=== PATIENT | male | born 1950 | race Caucasian/White ===

== ENCOUNTER 2017-11-14 12:35 | Inpatient (IN) | payer MEDICARE, BC, OTHER ==
[~2017-11-14] VITALS: Ht 175.3 cm; Wt 89.8 kg
[2017-11-14] MEDS ORDERED: MIRALAX 17 GM POWD.PACK PO PRN (13:15)
[2017-11-14] MEDS ORDERED: MAGNESIUM HYDROXIDE 30 ML LIQUID UDC PO PRN (13:15)
[2017-11-14] MEDS ORDERED: ONDANSETRON 4 MG/2 ML VIAL IM PRN (13:15)
[2017-11-14] MEDS ORDERED: ONDANSETRON ODT 4 MG TAB.RAPDIS SL PRN (13:15)
[2017-11-14] MEDS ORDERED: LORAZEPAM 2 MG/1 ML VIAL IM PRN (13:15)
[2017-11-14] MEDS ORDERED: LOPERAMIDE HCL 2 MG CAPSULE PO PRN ×2 (13:15)
[2017-11-14] MEDS ORDERED: THIAMINE HCL 200 MG/2 ML VIAL IM ONE (13:15)
[2017-11-14] MEDS ORDERED: LORAZEPAM 1 MG TABLET PO PRN ×2 (13:15)
[2017-11-14] MEDS ORDERED: MAG HYDROX/AL HYDROX/SIMETH 30 ML LIQUID UDC PO PRN (13:15)
[2017-11-14] MEDS ORDERED: IBUPROFEN 400 MG TABLET PO PRN (13:15)
[2017-11-14] MEDS ORDERED: diphenhydrAMINE 50 MG CAPSULE PO PRN (13:15)
[2017-11-14] MEDS ORDERED: OLME20TA13 PO (13:18)
[2017-11-14] MEDS ORDERED: DEXL60CA3 PO (13:18)
[2017-11-14 13:25] VITALS: BP 178/122
--- NOTE | 2017-11-14 13:25 | NUR ---
Pre-Admission Pre-admission assessment performed in the intake department of [facility]. Pt is A&O and ambulatory. He does not appear intoxicated and answers questions appropriately. Pt's B/P is 178/122, HR 103, RR 18, O2 sat 97%, pain 0/10. He denies chest pain, dizziness, or SOB. He reports a h/o HTN and takes an anti-hypertensive. Pt reports he is here to be treated for ETOH withdrawal. Last drink being 11/13/17 at 1800. He appears anxious with moist skin and tremors. He denies seizure history. Ad[facility] to [facility].
[2017-11-14 13:47] LABS: *AMPHETAMINE, URINE NEGATIVE (NEGATIVE); *BARBITURATE, URINE NEGATIVE (NEGATIVE); *CANNABINOID, URINE NEGATIVE (NEGATIVE); *COCCAINE, URINE NEGATIVE (NEGATIVE); *OPIATE, URINE NEGATIVE (NEGATIVE); *PHENCYCLIDINE SCREEN,URINE NEGATIVE (NEGATIVE)
[2017-11-14] MEDS: LORAZEPAM 1 MG TABLET PO SCH ×3 (13:54→21:05)
[2017-11-14] MEDS: hydrALAZINE HCL 25 MG TABLET PO PRN ×2 (13:55→21:05)
--- NOTE | 2017-11-14 13:56 | NUR ---
PRN Hydralazine Pt's B/P on admission is 178/122 and HR 103. Pt denies chest pain, dizziness, or SOB. CIWA score 14. Dr. Hogan aware. PRN Hydralazine administered along with ordered Ativan.
[2017-11-14 15:00] VITALS: BP 140/86
--- NOTE | 2017-11-14 15:00 | NUR ---
PRN Hydralazine reassessment PRN Hydralazine effective. Pt's B/P 140/86 and HR 89.
[2017-11-14 15:34] LABS: EOSINOPHILS % (AUTO) 0.8 % (0.0-7.0); HEMOGLOBIN 14.2 g/dL (12.5-16.3); LYMPHOCYTES # (AUTO) 0.4 K/uL (20.0-40.0); LYMPHOCYTES % (AUTO) 8.8 % (20.5-51.5); MEAN CORPUSCULAR HEMOGLOBIN 32.8 uug (23.8-33.4); MEAN CORPUSCULAR HGB CONC 34 g/dL (32.5-36.3); MEAN CORPUSCULAR VOLUME 97.1 fL (73.0-96.2); MONOCYTES # (AUTO) 0.6 K/uL (2.0-10.0); MONOCYTES % (AUTO) 14.6 % (0.0-11.0); NEUTROPHILS # (AUTO) 3.3 K/uL (1.8-8.9); NEUTROPHILS % (AUTO) 74.8 % (38.5-71.5); PLATELET COUNT (AUTO) 116 K/uL (152-348); RED BLOOD CELL COUNT(AUTO) 4.33 MIL/uL (4.06-5.63); WHITE BLOOD COUNT (AUTO) 4.4 K/uL (3.6-10.2)
[2017-11-14 15:48] LABS: THYROID STIMULATING HORMONE 1.184 mIU/mL (0.358-3.740)
[2017-11-14 16:05] LABS: ALANINE AMINOTRANSFERASE 220 U/L (16-63); ALKALINE PHOSPHATASE 97 U/L (50-136); AMYLASE 65 U/L (25-115); ASPARTATE AMINOTRANSFERASE 117 U/L (15-37); BILIRUBIN,TOTAL 0.5 mg/dL (0.2-1.0); CARBON DIOXIDE 29 mmol/L (21-32); CHLORIDE 102 mmol/L (98-107); CREATININE 1.5 mg/dL (0.6-1.3); GLUCOSE 133 mg/dL (74-106); MAGNESIUM 1.6 mg/dL (1.8-2.4); POTASSIUM 4.3 mmol/L (3.5-5.1); TOTAL PROTEIN, SERUM 7.4 g/dL (6.4-8.2); UREA NITROGEN, BLOOD 18 mg/dL (7-18); URIC ACID 5.5 mg/dL (3.5-7.2)
[2017-11-14 16:07] LABS: ETHANOL < 3 MG/DL (0-0)
[2017-11-14] MEDS ORDERED: MAGNESIUM OXIDE 400 MG TABLET PO ONE (16:30)
[2017-11-14 17:15] VITALS: BP 154/109
--- NOTE | 2017-11-14 17:17 | NUR ---
ADMISSION Pt is a 66 yo male who arrived on the [facility] on 11/14/17 at 1341 for medically supervised detox. He is A&O and ambulatory. He reports NKA, requests to be full code status, and on a regular diet. He has PMH of HTN, GERD, and Gout. Pt denies any h/o seizures. On admission vitals are: B/P 178/122, HR 103, RR 18, O2 sat 97%, T 98.7, pain 0/10. Pt is 5'9" and weighs 198lb. PERRLA, lung sounds clear, bowel sounds present, brisk capillary refill, skin is moist and intact. He appears anxious, diaphoretic, with moderate tremors. Last BM was this morning and he is voiding freely. History of Use 1) ETOH/Vodka 9-12 oz per day for the past 2 years. Last drank 9 oz on 11/13/17 at 1800. He has a h/o ETOH use starting at age 16. Pt reports occasionally taking Ambien for sleep. He denies using any other substances. This is his first time in treatment. Pt lives at home alone. He has a Graduate degree and is retired. Pt explains that he recently had a difficult break-up with his Girlfriend. He decided to come to treatment today because "my friends had an intervention". Pt was hospitalized overnight 05/2017 for "dehydration". He reports recent decrease in appetite related to his ETOH use. His primary care physician is Dr. Burden in [place]. CIWA on admission is 14. Dr. Hogan aware of pt's vitals on admission. Admission orders received. Pt educated regarding treatment plan and use of the call light. Fall and seizure precautions in place. Bed is down with call light in reach.
--- NOTE | 2017-11-14 17:35 | NUR ---
Mg level 1.6 Orders received and carried out for Mag Ox 800mg.
--- NOTE | 2017-11-14 17:50 | NUR ---
Nursing Note Pt's B/P 154/109 and HR 83. CIWA 9. Routine Ativan administered per orders. Dr. Hogan made aware.
[2017-11-14 18:40] VITALS: BP 162/95
--- NOTE | 2017-11-14 19:20 | NUR ---
END OF SHIFT Report provided to mold shifter nurse. Pt is in his room watching TV. He is a 66 yo male admitted to [facility] today for ETOH dependence. He was anxious and nervous during admission with elevated B/P. PRN Hydralazine administered. 5 day Ativan taper started today. B/P reassessment after last dose of Ativan elevated. Endorsed to mold shifter for follow up. Last CIWA 9. He is compliant with treatment. Safety measures in place.
--- NOTE | 2017-11-14 19:30 | NUR ---
Start of Shift Note Received a 66 y/o male px, admitted on 11/14/2017 for medically supervised withdrawal from ETOH. Px is placed on 5 day Ativan taper started on 11/14/2017. During the rounds at 1930, VS as follows BP= 153/100, TN= 70, RR= 18, T= 97.7, O2sat= 98%. Px stated "my anxiety is 3/10". Bilateral hand tremors noted. Last reported CIWA was 9 by AM shift nurse. Bed in lowest position, side rails up 2x, and call lights within reach. We'll continue to monitor.
[2017-11-14 20:00] VITALS: BP 153/100
--- NOTE | 2017-11-14 21:05 | NUR ---
PRN Apresoline Px was given Apresoline 25 mg/tab, 1 tab PO for BP= 153/100. We'll continue to monitor.
[2017-11-14 22:05] VITALS: BP 171/101
--- NOTE | 2017-11-14 22:05 | NUR ---
Reassessment of BP Px's BP= 171/101 at 2205. We'll continue to monitor.
[2017-11-15] VITALS (7 sets, daily range): BP systolic 115–161; BP diastolic 87–104
--- NOTE | 2017-11-15 00:14 | NUR ---
RN note Clonidine Pt with UI=680/104 mmHg. Obtained order for Clonidine 0.2 mg PO once.
[2017-11-15] MEDS ORDERED: CLONIDINE HCL 0.2 MG TABLET PO ONE (00:15)
--- NOTE | 2017-11-15 01:35 | NUR ---
BP reassessment Px's BP= 143/96 after an hour of administration of Clonidine 0.2 mg/tab, 1 tab PO as 1x dose medicine.
--- NOTE | 2017-11-15 04:00 | NUR ---
CIWA deferred CIWA deferred at 0000 at 0400 due to the px is asleep, to assess if the px is awake per doctor's order. We'll continue to monitor.
[2017-11-15 06:06] LABS: HEPATITIS B SURFACE AG Negative (Negative)
[2017-11-15] MEDS: DEXILANT 60 MG PO SCH (06:52)
--- NOTE | 2017-11-15 07:11 | NUR ---
End of Shift Note During the shift at 2105, Apresoline 25 mg given PO, and at 0035 Clonidine 0.2 mg given PO as 1x dose for HTN. Last BP= 126/93 at 0400. Px's oral intake is 850 ml, voided 1x, No BM. Px slept for 8 hours. Last CIWA 7. At 0630, px is asleep on bed in fowlers position. Bed in lowest position, side rails up 2x, and call lights within reach. We'll continue to monitor. Px endorsed to AM shift nurse.
--- NOTE | 2017-11-15 07:15 | NUR ---
Start of Shift Catalytic Converter Operator received report on 66 year old male admitted to [facility] on 11/14/17 for medical management of withdrawal symptoms from ETOH. Pt reports NKDA, full code and regular diet. PMH of HTN, GERD, history of Diverticulitis. Pt has been started on an Ativan taper and is tolerating well with last recorded CIWA of 7, per NOC report. Catalytic Converter Operator encounters pt in bed resting with eyes closed. Rise and fall of chest noted, with even and unlabored respirations. Bed in low position with wheels locked and side rails up x2. Will continue to monitor, support and encourage according to plan of care.
[2017-11-15] MEDS ORDERED: PATIENT MAY USE OWN MED- MD OK PO SCH (09:00)
[2017-11-15] MEDS ORDERED: LORAZEPAM 1 MG TABLET PO SCH ×2 (09:00→21:00)
[2017-11-15] MEDS ORDERED: TUBERCULIN,PURIF.PROT.DERIV. 5 TU/0.1 ML TEST ID ONE (09:00)
[2017-11-15] MEDS: OLMESARTAN 20 MG PO SCH (09:20)
[2017-11-15] MEDS: FOLIC ACID 1 MG TABLET PO SCH (09:21)
[2017-11-15] MEDS: THIAMINE HCL 100 MG TABLET PO SCH (09:21)
[2017-11-15] MEDS: MULTIVITAMINS,THERAPEUTIC TABLET PO SCH (09:21)
[2017-11-15] MEDS: LORAZEPAM 1 MG TABLET PO SCH ×2 (13:06→17:25)
--- NOTE | 2017-11-15 19:23 | NUR ---
End of Shift Furniture Mover provided report on 66 year old male admitted to [facility] on 11/14/17 for medical management of withdrawal symptoms of ETOH. Pt reports NKDA, full code and regular diet. PMH of HTN, GERD, history of Diverticulitis. Pt has been started on an Ativan taper and is tolerating well with last recorded CIWA of 4 at 1600. Pt is A/O x4 and makes needs known. Calm, cooperative with flat affect and congruent mood. Pleasant and polite with engineering writer. Clear of thought and speech. Bed in low position with wheels locked and side rails up x2. Will continue to monitor, support and encourage according to plan of care.
--- NOTE | 2017-11-15 19:43 | NUR ---
Start of Shift Received report on 66 year old male admitted to [facility] on 11/14/17 for management of withdrawal symptoms from ETOH. Patient is Full code, NKA and regular diet. PMHx of HTN, GERD and history of Diverticulitis. Patient has been started on an Ativan taper and is tolerating well with last recorded CIWA of 4, per dayshift report. Received Patient resting in bed watching TV. No pain or discomfort reported. No distress noted. No SOB observed. Bed locked and in lowest position with 2/4 side rails up for safety. Call light within reach. Will continue to monitor.
[2017-11-16] VITALS: BP 142/87
[2017-11-16 04:00] VITALS: BP 149/109
--- NOTE | 2017-11-16 04:09 | NUR ---
CIWA deferred CIWA deferred at 0000 at 0400 due to the patient being asleep per doctor's order. Will continue to monitor
--- NOTE | 2017-11-16 07:03 | NUR ---
End of shift Patient is a 66 year old male admitted to [facility] on 11/14/17 for management of withdrawal symptoms from ETOH. Patient is Full code, NKA and regular diet. PMHx of HTN, GERD and history of Diverticulitis. Patient has been started on an Ativan taper and is tolerating well with last recorded CIWA of 0.Patient is sleeping comfortably in bed.No PRN medications administered. No pain or discomfort reported. No distress noted. No SOB observed. Bed locked and in lowest position with 2/4 side rails up for safety. Call light within reach. Will endorse to oncoming shift for continuity of care.
--- NOTE | 2017-11-16 07:15 | NUR ---
Start of Shift Caltrans Equipment Operator received report on 66 year old male admitted to [facility] on 11/14/17 for medical management of withdrawal symptoms from ETOH. Pt reports NKDA, full code and regular diet. PMH of HTN, GERD, history of Diverticulitis. Pt has been started on an Ativan taper and is tolerating well with last recorded CIWA of 0, per NOC report. Caltrans Equipment Operator encounters pt in bed resting with eyes closed. Rise and fall of chest noted, with even and unlabored respirations. Bed in low position with wheels locked and side rails up x2. Will continue to monitor, support and encourage according to plan of care.
[2017-11-16] MEDS: DEXILANT 60 MG PO SCH (07:21)
[2017-11-16 08:00] VITALS: BP 170/108
[2017-11-16] MEDS: MULTIVITAMINS,THERAPEUTIC TABLET PO SCH (08:09)
[2017-11-16] MEDS: THIAMINE HCL 100 MG TABLET PO SCH (08:09)
[2017-11-16] MEDS: FOLIC ACID 1 MG TABLET PO SCH (08:09)
[2017-11-16] MEDS: OLMESARTAN 20 MG PO SCH (08:09)
[2017-11-16] MEDS: LORAZEPAM 1 MG TABLET PO SCH ×3 (08:09→20:00)
[2017-11-16 08:27] LABS: BASOPHILS % (AUTO) 1.2 % (0.0-2.0); EOSINOPHILS # (AUTO) 0.2 K/uL (0.0-0.7); EOSINOPHILS % (AUTO) 5.4 % (0.0-7.0); HEMATOCRIT 41.5 % (36.7-47.1); HEMOGLOBIN 13.9 g/dL (12.5-16.3); LYMPHOCYTES # (AUTO) 0.9 K/uL (20.0-40.0); MEAN CORPUSCULAR HEMOGLOBIN 32.6 uug (23.8-33.4); MEAN CORPUSCULAR HGB CONC 34 g/dL (32.5-36.3); MEAN CORPUSCULAR VOLUME 97.5 fL (73.0-96.2); MONOCYTES # (AUTO) 0.7 K/uL (2.0-10.0); MONOCYTES % (AUTO) 20.6 % (0.0-11.0); NEUTROPHILS # (AUTO) 1.5 K/uL (1.8-8.9); NEUTROPHILS % (AUTO) 45.8 % (38.5-71.5); PLATELET COUNT (AUTO) 131 K/uL (152-348); RED BLOOD CELL COUNT(AUTO) 4.26 MIL/uL (4.06-5.63); WHITE BLOOD COUNT (AUTO) 3.4 K/uL (3.6-10.2)
[2017-11-16 08:50] LABS: BILIRUBIN,DIRECT 0.2 mg/dL (0.0-0.2); BILIRUBIN,TOTAL 0.4 mg/dL (0.2-1.0); CREATININE 1.4 mg/dL (0.6-1.3); MAGNESIUM 2.1 mg/dL (1.8-2.4); PHOSPHOROUS 4.1 mg/dL (2.5-4.9); POTASSIUM 4.4 mmol/L (3.5-5.1); TOTAL PROTEIN, SERUM 7.2 g/dL (6.4-8.2)
--- NOTE | 2017-11-16 11:06 | NUR ---
PRN Motrin Pt with complaint of Headache, 5/10 and requests medication. Chemical Cell Changer administers medication per order and pt tolerates well. Will continue to monitor, support and encourage according to plan of care.
[2017-11-16] MEDS ORDERED: hydrALAZINE HCL 25 MG TABLET PO PRN (11:15)
[2017-11-16] MEDS ORDERED: hydrALAZINE HCL 50 MG TABLET PO PRN (11:15)
--- NOTE | 2017-11-16 12:06 | NUR ---
PRN Re-Assessment Pt endorses complete relief, stating, " all gone." Will continue to monitor, support and encourage according to plan of care.
[2017-11-16] MEDS ORDERED: CLONIDINE HCL 0.1 MG TABLET PO ONE (12:30)
[2017-11-16 12:57] VITALS: BP 150/99
[2017-11-16 13:09] LABS: BAND % (MANUAL) 1 % (0-10); BASOPHILS % (MANUAL) 1 % (0-2); EOSINOPHILS % (MANUAL) 7 % (0-8); LYMPHOCYTES % (MANUAL) 30 % (20-40); METAMYELOCYTES % 1 % (0-1); MONOCYTES % (MANUAL) 18 % (2-10); NEUTROPHILS % (MANUAL) 42 % (42-75)
[2017-11-16 16:30] VITALS: BP 147/98
[2017-11-16] MEDS ORDERED: AMLODIPINE 5 MG TABLET PO SCH ×2 (17:00→21:00)
--- NOTE | 2017-11-16 19:22 | NUR ---
End of Shift Entertainment Dancer provided report on 66 year old male admitted to [facility] on 11/14/17 for medical management of withdrawal symptoms from ETOH. Pt reports NKDA, full code and regular diet. PMH of HTN, GERD, history of Diverticulitis. Pt has been started on an Ativan taper and is tolerating well with last recorded CIWA of 4 recorded at 1630. Pt is pleasant and compliant. Calm and cooperative, A/O x4. Bed in low position with wheels locked and side rails up x2. Will continue to monitor, support and encourage according to plan of care.
--- NOTE | 2017-11-16 19:23 | NUR ---
Start of shift note Received report from day shift nurse. Pt is a 66 yo male, A+Ox4, presenting to [facility] for ETOH withdrawal. Pt is on 5 day Ativan taper, tolerated well. Pt noted to be anxious and agitated. Pt has HX of HTN, GERD, and diverticulitis which will be monitored during shift. Respirations even and unlabored. Will continue to monitor.
[2017-11-16 20:15] VITALS: BP 181/101
--- NOTE | 2017-11-16 23:23 | NUR ---
RN note PRN Hydralazine Pt's TD=725/104, Pulse=64. Administered Hydralazine 50 mg PO PRN as ordered. Will recheck BP.
[2017-11-17] VITALS (7 sets, daily range): BP systolic 113–155; BP diastolic 76–105
--- NOTE | 2017-11-17 00:20 | NUR ---
PRN Hydralazine Reassessment medication mildly effective. b/p= 155/105. No s/s of ASE noted at this time. Respirations even and unlabored. Will continue to monitor.
[2017-11-17] MEDS ORDERED: CLONIDINE HCL 0.1 MG TABLET PO ONE (00:30)
--- NOTE | 2017-11-17 00:37 | NUR ---
RN note Clonidine one-time Pt's BP eerrxboqe=155/105, obtained order for Clonidine 0.1 mg PO one-time and administered.
--- NOTE | 2017-11-17 07:00 | NUR ---
End of shift note Pt was continuously noted with anxiety, agitation, and restlessness. Pt remained in room majority of shift except to get food from kitchen and to go smoke on smoking patio. Pt was given PRN Hydralazine @2322 and One time dose of Clonidine @0036. Pt slept for a total of 7 HRS. Last CIWA: 7 @0400. Respirations even and unlabored. Will endorse to day shift.
[2017-11-17] MEDS: DEXILANT 60 MG PO SCH (07:27)
--- NOTE | 2017-11-17 07:35 | NUR ---
START OF SHIFT Received report from day shift nurse. Pt is lying in bed resting and easily arousable. He is a 66 yo male admitted to [facility] on 11/14 for ETOH dependence. He is A&O and ambulatory. He has had elevated blood pressure which is managed with routine and PRN medications. 5 day Ativan taper started on 11/14. Pt is observed with tremors and has moist skin. He has flat affect, depressed mood, and is isolative. His hair is disheveled and he is unshaven. Safety measures in place.
[2017-11-17] MEDS ORDERED: AMLODIPINE 5 MG TABLET PO SCH ×2 (09:00→21:00)
[2017-11-17] MEDS ORDERED: LORAZEPAM 1 MG TABLET PO SCH (09:00)
[2017-11-17] MEDS: FOLIC ACID 1 MG TABLET PO SCH (09:31)
[2017-11-17] MEDS: PATIENT MAY USE OWN MED- MD OK PO SCH (09:32)
[2017-11-17] MEDS: THIAMINE HCL 100 MG TABLET PO SCH (09:35)
[2017-11-17] MEDS: MULTIVITAMINS,THERAPEUTIC TABLET PO SCH (09:35)
[2017-11-17] MEDS: LORAZEPAM 1 MG TABLET PO SCH ×2 (14:35→20:23)
[2017-11-17] MEDS ORDERED: AMLO10TA2 PO (16:00)
[2017-11-17] MEDS ORDERED: OLME20TA13 PO (16:00)
[2017-11-17] MEDS ORDERED: DIPH50CA37 PO (16:00)
--- NOTE | 2017-11-17 19:11 | NUR ---
Start of shift note Received report from day shift nurse. Pt is 66 yo male, A+Ox4 presenting to [facility] for ETOH withdrawal. Pt is on 5 day Ativan taper, tolerated well. Pt has HX of HTN and GERD which will be monitored during shift. Pt noted to be anxious, restless, and agitated. Respirations even and unlabored. Will continue to monitor.
[2017-11-18 00:26] VITALS: BP 130/87
[2017-11-18 04:40] VITALS: BP 140/89
[2017-11-18] MEDS: DEXILANT 60 MG PO SCH (06:55)
--- NOTE | 2017-11-18 07:00 | NUR ---
End of shift note Pt was continuously noted with anxiety, agitation, and restlessness. Pt remained in room for majority of shift except to go smoke on smoking patio and to get food from kitchen. Pt was not given any PRN medications during shift. Pt slept for a total of 8 HRS. Last CIWA: 6 @0400. Respirations even and unlabored. Will endorse to day shift nurse.
--- NOTE | 2017-11-18 07:10 | NUR ---
Start of Shift Robotic Technician received report on 66 year old male admitted to [facility] on 11/14/17 for medical management of withdrawal symptoms from ETOH. Pt reports NKDA, full code and regular diet. PMH of HTN, GERD, history of Diverticulitis. Pt has been started on an Ativan taper and is tolerating well with last recorded CIWA of 6, per NOC report. Robotic Technician encounters pt in bed resting with eyes closed. Rise and fall of chest noted, with even and unlabored respirations. Bed in low position with wheels locked and side rails up x2. Will continue to monitor, support and encourage according to plan of care.
[2017-11-18 08:30] VITALS: BP 139/99
[2017-11-18] MEDS ORDERED: LORAZEPAM 1 MG TABLET PO SCH (09:00)
[2017-11-18] MEDS: AMLODIPINE 10 MG TABLET PO SCH (09:44)
[2017-11-18] MEDS: MULTIVITAMINS,THERAPEUTIC TABLET PO SCH (09:44)
[2017-11-18] MEDS: FOLIC ACID 1 MG TABLET PO SCH (09:44)
[2017-11-18] MEDS: PATIENT MAY USE OWN MED- MD OK PO SCH (09:45)
[2017-11-18] MEDS: THIAMINE HCL 100 MG TABLET PO SCH (09:45)
[2017-11-18 12:22] VITALS: BP 119/86
--- NOTE | 2017-11-18 13:26 | NUR ---
Therapist prompted client to attend all groups while in treatment to increase feelings of being connected to others and not be isolated in bedroom. Therapist explained the benefits of attending groups such as learning new coping tools, learning about feelings/emotions and being able to learn to decrease negative feelings and thoughts.
[2017-11-18 16:46] VITALS: BP 117/77
--- NOTE | 2017-11-18 19:11 | NUR ---
End of Shift Concrete Mixing Plant Laborer provided report on 66 year old male admitted to [facility] on 11/14/17 for medical management of withdrawal symptoms from ETOH. Pt reports NKDA, full code and regular diet. PMH of HTN, GERD, history of Diverticulitis. Pt has completed his Ativan taper in anticipation of tomorrows discharge. Pt is A/O x4 and makes his needs known. Pt isolates to room and self, withdrawn from peers, social with copywriter. No complaints voiced. Bed in low position with wheels locked and side rails up x2. Will continue to monitor, support and encourage according to plan of care.
--- NOTE | 2017-11-18 19:12 | NUR ---
Start of shift note Received report from day shift nurse. Pt is a 66 yo male, A+Ox4, presenting to [facility] for ETOH withdrawal. Pt noted to be anxious, agitated, and restless. Pt has HX of HTN and GERD which will be monitored during shift. Pt has completed 5 day Ativan taper, tolerated well, and is due for discharge tomorrow. Respirations even and unlabored. Will continue to monitor.
[2017-11-18 20:40] VITALS: BP 140/87
[2017-11-19 00:36] VITALS: BP 146/91
[2017-11-19 04:15] VITALS: BP 137/94
--- NOTE | 2017-11-19 06:51 | NUR ---
End of shift note Pt was continuously noted with anxiety and agitation. Pt remained in room for majority of shift except to go smoke on smoking patio and to get food from kitchen. Pt was not given any PRN medications during shift. Pt has completed 5 day Ativan taper, tolerated well, and is due for discharge today. Pt slept for a total of 8 HRS. Last CIWA: 5 @0400. Respirations even and unlabored. Will endorse to day shift nurse.
[2017-11-19] MEDS: DEXILANT 60 MG PO SCH (07:09)
--- NOTE | 2017-11-19 07:30 | NUR ---
START OF SHIFT Pt is a 66 yr old male, AA&Ox4. pt was admitted on 11/14/17 for ETOH withdrawal and has completed 5 day Ativan taper as ordered. Received report from hourly shift nurse. No PRN's were given during the night. Pt slept for 8 hrs. Last CIWA score was 5 at 0400. Pt is currently in bed resting with resting with respirations even and unlabored. Skin is intact, warm and dry to touch. Pt is on fall and seizure precautions. Pt is to be discharged today to [facility]. Will continue to f/u.
[2017-11-19 08:00] VITALS: BP 127/91
[2017-11-19] MEDS: PATIENT MAY USE OWN MED- MD OK PO SCH (08:24)
[2017-11-19] MEDS: FOLIC ACID 1 MG TABLET PO SCH (08:24)
[2017-11-19] MEDS: MULTIVITAMINS,THERAPEUTIC TABLET PO SCH (08:24)
[2017-11-19 08:25] VITALS: BP 127/91
[2017-11-19] MEDS: AMLODIPINE 10 MG TABLET PO SCH (08:25)
[2017-11-19] MEDS: THIAMINE HCL 100 MG TABLET PO SCH (08:26)
--- NOTE | 2017-11-19 10:00 | NUR ---
DISCHARGE NOTE Pt was a 66 yr old male, AA&Ox4. Pt was admitted on 11/14/17 for ETOH w/d and completed a 5 day Ativan taper as ordered. Medication was effective and clarence well. Pt was cooperative with medication regimen and plan of care. Pt states of having anxiety due to discharged but is able to cope with anxiety level. No SI/HI note. Last CIWA score was 4 at 0800. Pt was educated on discharged package and prescription. Pt was able to able to verbalize understanding. Pt left the unit at 0956 in stable condition. Pt left with all belongings, valuables and home medication
== END 2017-11-19 09:56 | DRG 895 ==
LOC: SRC 12:47
PROVIDERS: ADMIT Internal Medicine; ATTEND Internal Medicine
PROC: HZ2ZZZZ Detoxification Services for Substance Abuse Treatment (ICD-10-PCS; principal; 2017-11-14)
PROC: HZ51ZZZ Individual Psychotherapy for Substance Abuse Treatment, Behavioral (ICD-10-PCS; 2017-11-17)
DX: F10.230 Alcohol dependence with withdrawal, uncomplicated (principal); N17.9 Acute kidney failure, unspecified; D69.6 Thrombocytopenia, unspecified; I15.9 Secondary hypertension, unspecified; E83.42 Hypomagnesemia; E86.0 Dehydration; K70.10 Alcoholic hepatitis without ascites; F32.9 Major depressive disorder, single episode, unspecified; M10.9 Gout, unspecified; D72.819 Decreased white blood cell count, unspecified; K21.9 Gastro-esophageal reflux disease without esophagitis; Y90.0 Blood alcohol level of less than 20 mg/100 ml; Z81.1 Family history of alcohol abuse and dependence; Z83.3 Family history of diabetes mellitus; Z82.49 Family history of ischemic heart disease and other diseases of the circulatory system; Z80.42 Family history of malignant neoplasm of prostate; Z82.61 Family history of arthritis
CPT/HCPCS: 36415; 80307; 82746; 83735; 84100; 84443; 84550; 85025; 86580; 86592; 86705; 86803; 87340; 87806; A4663; G0480; J3411